=== PATIENT | female | born 1945 | race Caucasian/White ===

== ENCOUNTER 2018-09-11 15:40 | Outpatient (REF) | payer MEDICARE, OTHER, SELFPAY ==
[2018-09-11 23:11] LABS: Anion Gap 12.8 mmol/L (3-11); BUN 23 mg/dL (7-18); CO2 29.2 mmol/L (21.0-32.0); CREATININE 0.99 mg/dL (0.55-1.02); Calcium 9.8 mg/dL (8.5-10.1); Chloride 100 mmol/L (98-107); Estimated GFR 55.29 (mL/min/1.73m2); Glucose 88 mg/dL (70-100); Potassium 3.4 mmol/L (3.5-5.1); Sodium 142 mmol/L (136-145)
[2018-09-13 10:14] LABS: Hepatitis C Ab w Rflx HCV PCR Negative (NEGAT)
== END 2018-09-11 16:00 ==
LOC: NCHCN 15:40
PROVIDERS: PCP Internal Medicine; Visit Provider Internal Medicine
DX: G44.209 Tension-type headache, unspecified, not intractable (principal); I10 Essential (primary) hypertension; Z11.59 Encounter for screening for other viral diseases
CPT/HCPCS: 80048; 85652; 86803

== ENCOUNTER 2018-09-12 15:48 | Outpatient (REF) | payer MEDICARE, SELFPAY ==
[2018-09-12 23:06] LABS: ESR 22 MM/HR (0-30)
== END 2018-09-12 16:08 ==
LOC: NCHCN 15:48
PROVIDERS: PCP Internal Medicine; Visit Provider Internal Medicine
DX: G44.209 Tension-type headache, unspecified, not intractable (principal); I10 Essential (primary) hypertension
CPT/HCPCS: 85652

== ENCOUNTER → 2018-10-03 12:42 | Outpatient (BNVA) | payer MEDICARE, OTHER, SELFPAY | PROVIDERS: PCP Internal Medicine; Referring Provider Internal Medicine; Visit Provider Student in an Organized Health Care Education/Training Program | DX: M65.311 Trigger thumb, right thumb (principal); M65.342 Trigger finger, left ring finger; M65.352 Trigger finger, left little finger; I10 Essential (primary) hypertension | CPT/HCPCS: 99201; 99214 ==

== ENCOUNTER 2019-02-04 13:19 | Outpatient (CLI) | payer MEDICARE, OTHER, SELFPAY ==
--- NOTE | 2019-02-04 12:24 | DI.RAD_ITS ---
SYMPTOMS/DIAGNOSIS: COUGH, R05 PA AND LATERAL CHEST: The heart is not enlarged. There is an apparent small calcified granuloma in the right mid lung. Mild changes of COPD and scarring are noted. No pleural effusion seen. No focal consolidation seen. CONCLUSION: No evidence of acute disease.
== END 2019-02-04 13:39 ==
PROVIDERS: PCP Internal Medicine; Visit Provider Specialist/Technologist Athletic Trainer
DX: R05 Cough (principal); J44.9 Chronic obstructive pulmonary disease, unspecified
CPT/HCPCS: 71046

== ENCOUNTER 2019-02-10 08:25 | Emergency (ER) | payer MEDICARE, OTHER, SELFPAY ==
[2019-02-10 08:29] VITALS: BP 157/88; PULSE 60; RESP 20; TEMP 37.1; O2SAT 98
--- NOTE | 2019-02-10 08:38 | ED.GENADUL_ITS ---
Discharge Plan Disposition Patient Disposition: HOME Condition: Good Discharge Details Chief Complaint: Urinary Clinical Impression: Hematuria, Acute dehydration Primary Care Provider: Buddy Chopra ED Provider: Magnus Em Home Meds and New Rx's Prescriptions: No Action losartan 50 mg tablet 50 mg PO DAILY RF: 0 chlorthalidone 25 MG tablet 25 mg PO DAILY RF: 0 Ocuvite with Lutein 1 EACH tablet 1 ea PO DAILY RF: 0 potassium chloride 10 MEQ capsule, extended release 10 meq PO DAILY RF: 0 naproxen 500 MG tablet 500 mg PO PRN PRNRF: 0 calcium citrate-vitamin D3 1 EACH tablet 1 ea PO DAILY RF: 0 Discharge Instructions Instructions: Dehydration (ED), Hematuria (ED) Additional Instructions: Please drink 10 to 12 cups of water per day. Please follow-up closely with your primary care provider for reassessment of your urine to note resolving hematuria/blood in your urine. If you notice any worsening of your symptoms, or any new symptoms such as vomiting, diarrhea, fever, chills, shortness of breath, chest pain, numbness, weakness, or fainting , please return immediately to the emergency department for reevaluation. Please follow up with your primary care provider as soon as possible for reassessment and reevaluation. As always, it was a pleasure participating in your medical care today. Referrals: Buddy Chopra MD [Primary Care Provider] - Medical Decision Making This is a 73-year-old female who presents today for concern over brown coloring of her urine. Last night she did a significant amount of dancing with her partner, she did not drink much water. She denies any dysuria, hematuria, urinary frequency or fever or chills. She has no pelvic or flank pain whatsoever. She is otherwise asymptomatic aside for the brown urine. She denies any history of kidney stones or bladder pelvic pathology in the past. She does admit to a recent upper respiratory infection over the last 2 to 3 weeks, which is now resolved. She denies any other complaints. Differential at this time includes UTI, mild hematuria causing her discoloration, or post infectious glomerulonephritis. We will get basic labs, evaluate her urine and reassess. No clinical indication for strep throat infection at this time, and so I do not think any additional testing is indicated. 9:37 AM Laboratory work-up is returned, patient demonstrates normal renal function, there is evidence of mild dehydration with an elevated BUN. Potassium is slightly low at 3.2, however this appears to be chronic. We will recommend doubling up on her regular daily potassium supplements for the next 3 to 4 days. Urinalysis shows no evidence of urinary tract infection, however there is evidence of mild to moderate hematuria. However on observation of her urine it actually is clearing up significantly on external view. With no symptoms of flank pain, abdominal pain, dysuria, or pain whatsoever and with no evidence of casts in the urine, the diagnosis of urolithiasis is very low. I do not think any additional treatment is indicated at this time. She may also have mild asymptomatic hematuria secondary to her mild dehydration. Will recommend continued outpatient hydration, and close follow-up with her PCP for reevaluation of her urinalysis to make sure that the mild hematuria is resolving with hydration. Do not think any admission or emergent urologic consultation is indicated at this time. Signs and symptoms are clinically inconsistent with an aorto vesicular fistula. We discussed red flags for which to return the importance of prompt follow-up. I have extensively reviewed the treatment plan and discharge instructions with the patient and their family. I have addressed all patient concerns at this time. The patient and family was made aware of what symptoms to monitor for that would warrant a return to the emergency department. Discussed the plan with the patient and family, they demonstrate verbal understanding and agreement with our assessment and plan at this time. HPI General Date/Time Provider Initiated Documentation: 02/10/19 08:26 . HPI Narrative: This is a 73-year-old female with no significant past medical history except for anxiety, hypertension, and high cholesterol who presents today for evaluation of urinary complaint. The patient states that last night she did a lot of dancing and did not drink much water, this morning when she urinated she noticed that her PE was slightly brown in color. She denies any dysuria, urinary frequency, hematuria, flank abdominal or pelvic complaint, vaginal discharge or other complaints. She denies history of kidney stones, recent UTIs, or previous abdominal or pelvic surgeries. She has no other complaints at this time. The patient does admit to a recent URI in the last 2 to 3 weeks, which was mildly persistent for 1 to 2 weeks. This is notably resolved. She denies any significant sore throat or recent strep infection. She denies any foreign travel or history of renal disease. Related Data Home Medications Medication Instructions Recorded Confirmed Ocuvite with Lutein 1 ea PO DAILY 05/08/13 02/10/19 chlorthalidone 25 mg PO DAILY 05/08/13 02/10/19 potassium chloride 10 meq PO DAILY 10/09/17 02/10/19 calcium citrate-vitamin D3 1 ea PO DAILY 10/11/17 02/10/19 naproxen 500 mg PO PRN PRN 10/11/17 02/10/19 losartan 50 mg tablet 50 mg PO DAILY 10/03/18 02/10/19 Allergies Allergy/AdvReac Type Severity Reaction Status Date / Time No Known Allergies Allergy Unverified 02/10/19 08:31 General Stated Complaint: Urinary SHAZIA: 3 Review of Systems Review of Systems All systems reviewed & are unremarkable except as noted in HPI and below PFSH Family History Father Myocardial infarction Sister Atrial fibrillation Brother No problems noted. Brother No problems noted. Brother No problems noted. Social History Smoking/Tobacco Use Status: Never Alcohol Intake: current Alcohol Intake frequency: a few times a month Drug use: Never Do you feel safe at home: Yes Do you feel safe in your relationship?: Yes Exam Narrative Exam Narrative: 1.Const: Well-nourished, Well-developed, appearing stated age 2.Eyes: PERRL, no conjunctival injection, and symmetrical lids. 3.ENT: Atraumatic external nose and ears. Moist MM. Neck: Symmetric, trachea midline, No thyromegaly. No erythema the posterior oropharynx. No tonsillar exudates. No evidence of strep infection 4.CVS: +S1/S2, No murmurs or gallops. Peripheral pulses 2+ and equal in all extremities. Brisk capillary refill in all extremities. 5.RESP: Unlabored respiratory effort. Clear to auscultation bilaterally. No wheezes rales or rhonchi 6.GI: Soft, Nontender/Nondistended, No hepatosplenomegaly. No guarding or rebound. No flank or CVA tenderness. No tenderness on percussion of the pelvis or palpation of the pelvic area. 7.MSK: Normocephalic/Atraumatic, Extremities w/o deformity or ttp No cyanosis or clubbing, Normal movement of all extremities 8.Skin: Warm, Dry. No rashes or lesions. 9.Neuro: cashier general II-XII grossly intact. Sensation grossly intact, no focal neurologic deficits. 10.Psych: (AAO) x3. Appropriate mood and affect Course Vital Signs Temperature 37.1 C 02/10/19 08:29 Pulse 60 02/10/19 08:29 Respiratory Rate 20 02/10/19 08:29 Blood Pressure 157/88 H 02/10/19 08:29 Pulse Oximetry 98 02/10/19 08:29 Temperature 37.1 C 02/10/19 08:29 Temperature Source Temporal Artery Scan 02/10/19 08:29 Pulse 60 02/10/19 08:29 Respiratory Rate 20 02/10/19 08:29 Respiratory Effort Non-Labored 02/10/19 08:29 Blood Pressure 157/88 H 02/10/19 08:29 Blood Pressure Position Sitting 02/10/19 08:29 Pulse Oximetry 98 02/10/19 08:29 Oxygen Delivery Method Room Air 02/10/19 08:29 Oxygen Flow Rate 0 02/10/19 08:29 Pain Level 0 02/10/19 08:29
[2019-02-10 08:49] LABS: Abs Immature Grans 0.01 k/cumm (0.0-0.09); Absolute Basophil Count 0.02 k/cumm (0.0-0.2); Absolute Eosinophil Count 0.11 k/cumm (0.0-0.7); Absolute Lymphocyte Count 1.44 k/cumm (1.2-3.4); Absolute Monocyte Count 0.32 k/cumm (0.11-0.7); Absolute Neutrophil Count 2.82 k/cumm (1.2-6.7); Basophils % 0.4; Eosinophils % 2.3; HCT 39.8 % (36.0-46.0); HGB 13.4 g/dL (12.0-15.5); Immature Grans % 0.2; Lymphocytes % 30.5; Mean Corp. HGB Concentration 33.7 g/dL (32.0-36.0); Mean Corpuscular Hemoglobin 30.3 pg (27.0-33.0); Mean Platelet Volume 9.8 fL (8.0-11.0); Monocytes % 6.8; Neutrophils % 59.8; Platelet Count 259 x1000/uL (130-400); RBC 4.42 m/cumm (4.00-5.20); RBC Distribution Width 13.5 % (11.7-14.6); White Blood Cell Count 4.72 k/cumm (4.4-10.8)
[2019-02-10 08:53] LABS: Anion Gap 8.3 mmol/L (3-11); BUN 24 mg/dL (7-18); CO2 29.7 mmol/L (21.0-32.0); CREATININE 0.97 mg/dL (0.55-1.02); Calcium 8.9 mg/dL (8.5-10.1); Chloride 100 mmol/L (98-107); Estimated GFR 56.45 (mL/min/1.73m2); Glucose 100 mg/dL (70-100); Potassium 3.2 mmol/L (3.5-5.1); Sodium 138 mmol/L (136-145)
[2019-02-10 08:55] LABS: Bilirubin Negative (Negative); Blood Moderate (Negative); Clarity Sl Cloudy; Glucose Negative (Negative); Ketones Negative (Negative); Leukocyte Esterase Negative (Negative); Nitrite Negative (Negative); Specific Gravity 1.015 (1.005-1.025); Urobilinogen 0.2 EU/dL (Up TO 0.2); pH 7.5 (5-8)
[2019-02-10 09:03] LABS: Epithelial Cells Rare HPF (Negative); RBC >50 (0-2); WBC 0-2 HPF (0-5)
[2019-02-10 09:12] LABS: Bacteria Rare HPF (Negative); C & S Indicated? No; Casts Negative LPF (Negative); Crystals Negative HPF (Negative); Mucus Negative (Negative)
[2019-02-12 17:26] LABS: Streptococcus Pneumoniae Ag, U Negative (Negative)
== END 2019-02-10 09:44 | disposition home or self-care (01) ==
PROVIDERS: Emergency Provider Student in an Organized Health Care Education/Training Program; PCP Internal Medicine
DX: R31.9 Hematuria, unspecified (principal); E86.0 Dehydration; I10 Essential (primary) hypertension
CPT/HCPCS: 36415; 80048; 99283; 81003; 81015; 85025; 87450

== ENCOUNTER 2019-02-12 15:54 | Emergency (ER) | payer MEDICARE, OTHER, SELFPAY ==
[2019-02-12 15:59] VITALS: BP 137/89; PULSE 69; RESP 16; TEMP 36.9; O2SAT 97
[2019-02-12 16:13] LABS: Bilirubin Negative (Negative); Blood Large (Negative); Clarity Cloudy; Glucose Negative (Negative); Ketones Negative (Negative); Leukocyte Esterase Negative (Negative); Nitrite Negative (Negative); Specific Gravity 1.015 (1.005-1.025); Urobilinogen 0.2 EU/dL (Up TO 0.2)
--- NOTE | 2019-02-12 16:19 | DI.CT_ITS ---
SYMPTOMS/DIAGNOSIS: HEMATURIA ABDOMINAL AND PELVIC CT: CT examination of the abdomen and pelvis was performed without contrast administration. Images obtained through the lung bases are unremarkable. The visualized portions of the liver and spleen appear normal. The pancreas appears intact by noncontrast criteria. The gallbladder and biliary ducts are unremarkable. The abdominal aorta is of normal diameter. No significant abdominal wall hernia seen. No significant abdominal or pelvic adenopathy identified. The appendix appears normal. No evidence of bowel obstruction or diverticulitis. The adrenals are unremarkable in appearance bilaterally. There is a 7 cm in diameter low attenuation left renal mass consistent with cyst. This was present on previous examination of 03/21/16. There is question of increased prominence of the right collecting system in comparison with the previous examination. There may be parapelvic cysts. No urinary tract calcification identified. The possibility of UPJ obstruction on the right not entirely excluded. CONCLUSION: Questionable findings involving collecting system of right kidney, UPJ obstruction not excluded. CT urogram suggested for further evaluation.
[2019-02-12 16:25] LABS: RBC >50 (0-2)
[2019-02-12 16:26] LABS: C & S Indicated? Yes
[2019-02-12 17:03] LABS: ALT 31 U/L (12-78); AST 22 U/L (15-37); Albumin 3.6 g/dL (3.4-5.0); Alkaline Phosphatase 54 U/L (46-116); Anion Gap 10.5 mmol/L (3-11); BUN 22 mg/dL (7-18); Bilirubin, Total 0.4 mg/dL (0.2-1.0); CO2 25.5 mmol/L (21.0-32.0); CREATININE 0.85 mg/dL (0.55-1.02); Calcium 9.2 mg/dL (8.5-10.1); Chloride 101 mmol/L (98-107); Glucose 92 mg/dL (70-100); PTT Activated 22.6 sec (21.0-31.4); Potassium 3.4 mmol/L (3.5-5.1); Prothrombin Time 9.8 sec (9.3-11.0); Sodium 137 mmol/L (136-145); Total Protein 7.2 g/dL (6.4-8.2)
[2019-02-12 17:23] LABS: Abs Immature Grans 0.01 k/cumm (0.0-0.09); Absolute Basophil Count 0.01 k/cumm (0.0-0.2); Absolute Eosinophil Count 0.11 k/cumm (0.0-0.7); Absolute Lymphocyte Count 1.67 k/cumm (1.2-3.4); Absolute Monocyte Count 0.42 k/cumm (0.11-0.7); Absolute Neutrophil Count 3.49 k/cumm (1.2-6.7); Basophils % 0.2; Eosinophils % 1.9; HCT 38.3 % (36.0-46.0); HGB 12.9 g/dL (12.0-15.5); Immature Grans % 0.2; Lymphocytes % 29.2; Mean Corp. HGB Concentration 33.7 g/dL (32.0-36.0); Mean Corpuscular Hemoglobin 30.1 pg (27.0-33.0); Mean Corpuscular Volume 89.5 fL (80-95); Mean Platelet Volume 10.4 fL (8.0-11.0); Monocytes % 7.4; Neutrophils % 61.1; Platelet Count 256 x1000/uL (130-400); RBC 4.28 m/cumm (4.00-5.20); RBC Distribution Width 13.2 % (11.7-14.6); White Blood Cell Count 5.71 k/cumm (4.4-10.8)
[2019-02-12 18:06] VITALS: BP 155/70; PULSE 57; TEMP 37; O2SAT 97
--- NOTE | 2019-02-12 18:31 | DI.VRAD_ITS ---
EXAM: CT Abdomen and Pelvis Without Contrast EXAM DATE/TIME: 02/12/2019 4:20 PM CLINICAL HISTORY: 73 years old, female; Signs and symptoms; Other: Hematuria TECHNIQUE: Imaging protocol: Axial computed tomography images of the abdomen and pelvis without contrast. Coronal and sagittal reformatted images were created and reviewed. Radiation optimization: All CT scans at this facility use at least one of these dose optimization techniques: automated exposure control; mA and/or kV adjustment per patient size (includes targeted exams where dose is matched to clinical indication); or iterative reconstruction. COMPARISON: CT ABD PELVIS WITH CONTRAST 03/21/2016 9:39 AM FINDINGS: Lungs: There is mild bibasilar linear fibrosis/atelectasis. ABDOMEN: Liver: The first section of the abdomen CT begins low in the dome of the liver and upper spleen so the liver and spleen are incompletely imaged. The liver and spleen are otherwise unremarkable. Gallbladder and bile ducts: Normal. No calcified stones. No ductal dilation. Pancreas: Normal. No ductal dilation. Spleen: No splenomegaly. Adrenals: Normal. No mass. Kidneys and ureters: Large 6.7 cm left renal cyst. Kidneys are otherwise unremarkable. Stomach and bowel: Normal. No obstruction. No mucosal thickening. Appendix: No evidence of appendicitis. PELVIS: Bladder: Unremarkable as visualized. Reproductive: Unremarkable as visualized. ABDOMEN and PELVIS: Intraperitoneal space: No free air. No significant fluid collection. Small fat-containing umbilical hernia. Bones/joints: Degenerative changes of the lumbar spine without acute osseous abnormality. Soft tissues: Unremarkable. Vasculature: Atherosclerotic calcifications of the aorta and iliac arteries without evidence of aneurysm. Lymph nodes: Normal. No enlarged lymph nodes. IMPRESSION: No acute intra-abdominal process is identified. Dictated and Authenticated by: Estiven Diane MD. Ordering:FLAVIO Agudelo MD
--- NOTE | 2019-02-12 19:14 | ED.GENADUL_ITS ---
Discharge Plan Disposition Patient Disposition: HOME Condition: Good Discharge Details Chief Complaint: Urinary Clinical Impression: Hematuria Primary Care Provider: Buddy Chopra ED Provider: Magnus Em Home Meds and New Rx's Prescriptions: New cephalexin [Keflex] 500 mg capsule 500 mg PO QID 7 Days Qty: 28 RF: 0 No Action losartan 50 mg tablet 50 mg PO DAILY RF: 0 chlorthalidone 25 MG tablet 25 mg PO DAILY RF: 0 Ocuvite with Lutein 1 EACH tablet 1 ea PO DAILY RF: 0 potassium chloride 10 MEQ capsule, extended release 10 meq PO DAILY RF: 0 naproxen 500 MG tablet 500 mg PO PRN PRNRF: 0 calcium citrate-vitamin D3 1 EACH tablet 1 ea PO DAILY RF: 0 Discharge Instructions Instructions: Hematuria (ED) Additional Instructions: Please take the antibiotic as directed. You will be contacted for your follow- up appointment with Dr. Delgadillo. If you notice any worsening of your symptoms, or any new symptoms such as vomiting, diarrhea, fever, chills, shortness of breath, chest pain, numbness, weakness, or fainting , please return immediately to the emergency department for reevaluation. Please follow up with your primary care provider as soon as possible for reassessment and reevaluation. As always, it was a pleasure participating in your medical care today. Referrals: Preston Delgadillo MD [ [facility] STAFF PHYSICIAN] - Discharge Data Discharge Date/Time-TO BE ENTERED AT DEPARTURE: 02/12/19 19:40 Medical Decision Making This is a pleasant 73-year-old female with no significant past medical history except for mild high cholesterol mild hypertension presents today for evaluation of hematuria. He was seen and assessed here 4 days ago, at that time she had a urinalysis which showed mild hematuria, no evidence of infection, and she had no complaints of abdominal pain, flank pain, dysuria or increased urina ry frequency. Her and her stay last time urine resolved on its own in the ED, and she is feeling much better and was discharged home with instructions to return for return of her symptoms. Her hematuria has returned today after being 2 days of hematuria free. She continues to deny any flank or abdominal pain. She has no nausea vomiting fever or chills. Exam demonstrates a continued nontender. Abdomen. As of the return of her symptoms I do feel that further work-up is indicated. Laboratory work-up was drawn, the patient demonstrates no evidence of clinical anemia, white count is normal, hemoglobin and platelets are normal. Electrolytes are within normal limits, potassium has notably improved. Before. Renal function is stable, liver function normal. CT scan was ordered, there appears to be no evidence per virtual radiologist of kidney stone, or significant abnormality in the abdomen or pelvis. No evidence of bladder thickening, or other abnormality. No evidence of significant renal growth or tumor. There is evidence of a renal cyst but no other significant abnormalities. With a stable hemoglobin, reassuring vital signs, no evidence of clinical pyelonephritis, do not feel that admission or emergent urology consult is needed at this time. Symptoms appear inconsistent with a abdominal aortic aneurysm. Virtual radiology makes no additional comments. Out of an abundance of precaution we will start the patient on Keflex as there may be a component of cystitis secondary to very mild bacterial infection that could be causing her symptoms. We will schedule urology follow-up. Discussed red flags which to return the patient and family understand. I have extensively reviewed the treatment plan and discharge instructions with the patient and their family. I have addressed all patient concerns at this time. The patient and family was made aware of what symptoms to monitor for that would warrant a return to the emergency department. Discussed the plan with the patient and family, they demonstrate verbal understanding and agreement with our assessment and plan at this time. Exam: CT Abdomen and Pelvis Without Contrast EXAM DATE/TIME: 02/12/2019 4:20 PM CLINICAL HISTORY: 73 years old, female; Signs and symptoms; Other: Hematuria Technique: Imaging protocol: Axial computed tomography images of the abdomen and pelvis without contrast. Coronal and sagittal reformatted images were created and reviewed. Radiation optimization: All CT scans at this facility use at least one of these dose optimization techniques: automated exposure control; mA and/or kV adjustment per patient size (includes targeted exams where dose is matched to clinical indication); or iterative reconstruction. Comparison: CT ABD PELVIS WITH CONTRAST 03/21/2016 9:39 AM Findings: Lungs: There is mild bibasilar linear fibrosis/atelectasis. ABDOMEN: Liver: The first section of the abdomen CT begins low in the dome of the liver and upper spleen so the liver and spleen are incompletely imaged. The liver and spleen are otherwise unremarkable. Gallbladder and bile ducts: Normal. No calcified stones. No ductal dilation. Pancreas: Normal. No ductal dilation. Spleen: No splenomegaly. Adrenals: Normal. No mass. Kidneys and ureters: Large 6.7 cm left renal cyst. Kidneys are otherwise unremarkable. Stomach and bowel: Normal. No obstruction. No mucosal thickening. Appendix: No evidence of appendicitis. PELVIS: Bladder: Unremarkable as visualized. Reproductive: Unremarkable as visualized. ABDOMEN and PELVIS: Intraperitoneal space: No free air. No significant fluid collection. Small fat-containing umbilical hernia. Bones/joints: Degenerative changes of the lumbar spine without acute osseous abnormality. Soft tissues: Unremarkable. Vasculature: Atherosclerotic calcifications of the aorta and iliac arteries without evidence of aneurysm. Lymph nodes: Normal. No enlarged lymph nodes. Impression: No acute intra-abdominal process is identified. Dictated and Authenticated by: Estiven Diane MD. Ordering:FLAVIO Agudelo MD [facility] General Date/Time Provider Initiated Documentation: 02/12/19 15:56 . HPI Narrative: This is a very pleasant 73-year-old female with a past medical history of cholesterol, pretension, presents today for blood in her urine. He was seen and assessed 4 days ago, at that time her urine was slightly darker than normal, he has no other symptoms whatsoever. That time urinalysis shows mild hematuria with no evidence of infection. No pain, nausea, vomiting or other symptoms and her symptoms actually improving in the ED she was discharged home with close follow-up with her PCP. Is instructed to return if she had any return of her hematuria. Patient states that over the last 2 days she has been drinking plenty of water and her urine had completely resolved in regards to the hematuria over this morning hematuria returned and it was slightly more than before. She continues to deny any pain, abdominal pain, flank pain, dysuria, trace urinary frequency. She denies any fever, chills, chest pain, shortness of breath, vomiting or diarrhea. She denies any history of kidney stones, blood thinner use, or trauma. She has no other complaints modifying factors otherwise. Additionally she denies any vaginal discharge. Related Data Home Medications Medication Instructions Recorded Confirmed Ocuvite with Lutein 1 ea PO DAILY 05/08/13 02/12/19 chlorthalidone 25 mg PO DAILY 05/08/13 02/12/19 potassium chloride 10 meq PO DAILY 10/09/17 02/12/19 calcium citrate-vitamin D3 1 ea PO DAILY 10/11/17 02/12/19 naproxen 500 mg PO PRN PRN 10/11/17 02/12/19 losartan 50 mg tablet 50 mg PO DAILY 10/03/18 02/12/19 cephalexin [Keflex] 500 mg PO QID 7 Days #28 cap 02/12/19 Previous Rx's Medication Instructions Recorded cephalexin [Keflex] 500 mg PO QID 7 Days #28 cap 02/12/19 Allergies Allergy/AdvReac Type Severity Reaction Status Date / Time No Known Allergies Allergy Unverified 02/12/19 16:01 General Stated Complaint: Urinary SHAZIA: 3 Review of Systems Review of Systems All systems reviewed & are unremarkable except as noted in HPI and below PFSH Family History Father Myocardial infarction Sister Atrial fibrillation Brother No problems noted. Brother No problems noted. Brother No problems noted. Social History Smoking/Tobacco Use Status: Never Alcohol Intake: current Alcohol Intake frequency: a few times a month Drug use: Never Do you feel safe at home: Yes Do you feel safe in your relationship?: Yes Exam Narrative Exam Narrative: 1.Const: Well-nourished, Well-developed, appearing stated age 2.Eyes: PERRL, no conjunctival injection, and symmetrical lids. 3.ENT: Atraumatic external nose and ears. Moist MM. Neck: Symmetric, trachea midline, No thyromegaly. 4.CVS: +S1/S2, No murmurs or gallops. Peripheral pulses 2+ and equal in all extremities. Brisk capillary refill in all extremities. 5.RESP: Unlabored respiratory effort. Clear to auscultation bilaterally. No wheezes rales or rhonchi 6.GI: Soft, Nontender/Nondistended, No hepatosplenomegaly. No guarding or rebound. No flank or CVA tenderness. No guarding or rebound on CVA percussion. 7.MSK: Normocephalic/Atraumatic, Extremities w/o deformity or ttp No cyanosis or clubbing, Normal movement of all extremities 8.Skin: Warm, Dry. No rashes or lesions. 9.Neuro: patient access manager II-XII grossly intact. Sensation grossly intact, no focal neurologic deficits. 10.Psych: (AAO) x3. Appropriate mood and affect Course Vital Signs Temperature 36.9 C 02/12/19 15:59 Pulse 69 02/12/19 15:59 Respiratory Rate 16 05/14/19 15:59 Blood Pressure 137/89 02/12/19 15:59 Pulse Oximetry 97 02/12/19 15:59 Temperature 37.0 C 02/12/19 18:06 Temperature Source Skin 02/12/19 18:06 Pulse 57 L 02/12/19 18:06 Respiratory Rate 16 02/12/19 15:59 Respiratory Effort Non-Labored 02/12/19 16:02 Blood Pressure 155/70 H 02/12/19 18:06 Blood Pressure Position Sitting 02/12/19 15:59 Pulse Oximetry 97 02/12/19 18:06 Oxygen Delivery Method Room Air 02/12/19 15:59 Oxygen Flow Rate 0 02/12/19 15:59 Pain Level 0 02/12/19 18:06 Lab/Test Results Lab/Test Results: 02/12/19 16:05 Urine - Reflex from Ua Urine Culture - Pending Laboratory Tests Range/Units 02/12/19 02/12/19 02/12/19 16:05 16:38 16:38 WBC (4.4-10.8) k/cumm 5.71 RBC (4.00-5.20) m/cumm 4.28 Hgb (12.0-15.5) g/dL 12.9 Hct (36.0-46.0) % 38.3 MCV (80-95) fL 89.5 MCH (27.0-33.0) pg 30.1 MCHC (32.0-36.0) g/dL 33.7 RDW (11.7-14.6) % 13.2 Plt Count (130-400) x1000/uL 256 MPV (8.0-11.0) fL 10.4 Immature Gran % 0.2 Neutrophils % 61.1 Lymphocytes % 29.2 Monocytes % 7.4 Eosinophils % 1.9 Basophils % 0.2 Absolute Neutrophils (1.2-6.7) k/cumm 3.49 Absolute Lymphocytes (1.2-3.4) k/cumm 1.67 Absolute Monocytes (0.11-0.7) k/cumm 0.42 Absolute Eosinophils (0.0-0.7) k/cumm 0.11 Absolute Basophils (0.0-0.2) k/cumm 0.01 PT (9.3-11.0) sec INR (0.9-1.1) APTT (21.0-31.4) sec Sodium (136-145) mmol/L 137 Potassium (3.5-5.1) mmol/L 3.4 L Chloride (98-107) mmol/L 101 Carbon Dioxide (21.0-32.0) mmol/L 25.5 Anion Gap (3-11) mmol/L 10.5 BUN (7-18) mg/dL 22 H Creatinine (0.55-1.02) mg/dL 0.85 Estimated GFR/1.73 m2 (mL/min/1.73m2) >= 60.00 Glucose (70-100) mg/dL 92 Calcium (8.5-10.1) mg/dL 9.2 Total Bilirubin (0.2-1.0) mg/dL 0.4 AST (15-37) U/L 22 ALT (12-78) U/L 31 Alkaline Phosphatase (46-116) U/L 54 Total Protein (6.4-8.2) g/dL 7.2 Albumin (3.4-5.0) g/dL 3.6 Urine Color (Yellow) [place] Urine Clarity Cloudy Urine pH (5-8) 7.0 Ur Specific [place] (1.005-1.025) 1.015 Urine Protein (Negative) mg/dL >=300 H Urine Ketones (Negative) mg/dL Negative Urine Blood (Negative) Large H Urine Nitrite (Negative) Negative Urine Bilirubin (Negative) Negative Urine Urobilinogen (Up TO 0.2) EU/dL 0.2 Ur Leukocyte Esterase (Negative) Negative Urine RBC (0-2) >50 H Urine WBC Not Applicable Ur Epithelial Cells Not Applicable Urine Crystals Not Applicable Urine Bacteria Not Applicable Urine Mucus Not Applicable Ur Culture Indicated? Yes Urine Glucose (Negative) mg/dL Negative Range/Units 02/12/19 16:38 WBC (4.4-10.8) k/cumm RBC (4.00-5.20) m/cumm Hgb (12.0-15.5) g/dL Hct (36.0-46.0) % MCV (80-95) fL MCH (27.0-33.0) pg MCHC (32.0-36.0) g/dL RDW (11.7-14.6) % Plt Count (130-400) x1000/uL MPV (8.0-11.0) fL Immature Gran % Neutrophils % Lymphocytes % Monocytes % Eosinophils % Basophils % Absolute Neutrophils (1.2-6.7) k/cumm Absolute Lymphocytes (1.2-3.4) k/cumm Absolute Monocytes (0.11-0.7) k/cumm Absolute Eosinophils (0.0-0.7) k/cumm Absolute Basophils (0.0-0.2) k/cumm PT (9.3-11.0) sec 9.8 INR (0.9-1.1) 1.0 APTT (21.0-31.4) sec 22.6 Sodium (136-145) mmol/L Potassium (3.5-5.1) mmol/L Chloride (98-107) mmol/L Carbon Dioxide (21.0-32.0) mmol/L Anion Gap (3-11) mmol/L BUN (7-18) mg/dL Creatinine (0.55-1.02) mg/dL Estimated GFR/1.73 m2 (mL/min/1.73m2) Glucose (70-100) mg/dL Calcium (8.5-10.1) mg/dL Total Bilirubin (0.2-1.0) mg/dL AST (15-37) U/L ALT (12-78) U/L Alkaline Phosphatase (46-116) U/L Total Protein (6.4-8.2) g/dL Albumin (3.4-5.0) g/dL Urine Color (Yellow) Urine Clarity Urine pH (5-8) Ur Specific [place] (1.005-1.025) Urine Protein (Negative) mg/dL Urine Ketones (Negative) mg/dL Urine Blood (Negative) Urine Nitrite (Negative) Urine Bilirubin (Negative) Urine Urobilinogen (Up TO 0.2) EU/dL Ur Leukocyte Esterase (Negative) Urine RBC (0-2) Urine WBC Ur Epithelial Cells Urine Crystals Urine Bacteria Urine Mucus Ur Culture Indicated? Urine Glucose (Negative) mg/dL
[2019-02-12] MEDS: Cephalexin 500 MG CAP PO (19:22)
[2019-02-12 19:30] VITALS: BP 148/82; PULSE 61; RESP 18; TEMP 36.3; O2SAT 97
--- NOTE | 2019-02-13 08:10 | PDOC.ERCMPRO ---
Care Management Progress Note 02/13-Dr. Em requested assistance with a urology f/u in 1-2 weeks for hematuria. Referral faxed to urology this am.
== END 2019-02-12 19:40 | disposition home or self-care (01) ==
PROVIDERS: Emergency Provider Student in an Organized Health Care Education/Training Program; PCP Internal Medicine
DX: R31.9 Hematuria, unspecified (principal); I10 Essential (primary) hypertension
CPT/HCPCS: 36415; 80053; 99284; 74176; 81003; 81015; 85025; 85610; 85730; 87086

== ENCOUNTER → 2019-02-20 10:50 | Outpatient (BNVA) | payer MEDICARE, OTHER, SELFPAY | PROVIDERS: PCP Internal Medicine; Visit Provider Nurse Practitioner Gerontology | DX: R31.9 Hematuria, unspecified (principal); I10 Essential (primary) hypertension | CPT/HCPCS: 81003; 99204; 99215 ==

== ENCOUNTER 2019-02-26 01:04 | Outpatient (CLI) | payer MEDICARE, OTHER, SELFPAY ==
--- NOTE | 2019-02-26 10:21 | DI.CT_ITS ---
SYMPTOMS/DIAGNOSIS: HEMATURIA, AREA OF CONCERN BY RADIOLOGIST, R31.9 CT SCAN OF THE ABDOMEN AND PELVIS: Pre and post contrast CT scan of the abdomen and pelvis was performed. Comparison CT scan is 02/12/19. Noncontrast examination was performed. There is again seen a cyst in the upper pole of the left kidney, which appears stable. No nephrolithiasis or ureterolithiasis is seen. The urinary bladder is intact. Note is made of a 1.8 cm diverticulum arising from the right aspect of the urinary bladder. Contrast was then administered and venous imaging and [id number] imaging of the abdomen and pelvis were performed. No acute findings are seen in the lung bases. There is no evidence of a hepatic mass. The portals, superior mesenteric and splenic veins are patent. The gallbladder is negative. There is no biliary ductal dilatation. The pancreas, spleen and adrenal glands are grossly unremarkable. The cysts seen in the left kidney appear stable in size. There does appear to be mild thickening in the wall of the left kidney, which has developed when compared to the prior examination. The left kidney is otherwise unremarkable. In the right kidney, there are two tiny hypodense lesions, likely reflecting cysts but are too small for further characterization. The reproductive organs are unremarkable. The bowel shows no evidence of obstruction or inflammation. No significant abdominal or pelvic adenopathy, ascites or pneumoperitoneum is present. The abdominal aorta is of normal caliber. Moderately severe degenerative changes are present throughout the lumbar spine, particularly at the L5-S1 disc space. [id number] images of the collecting system were obtained. The right renal collecting system shows no evidence of obstruction. The left renal collecting system shows no evidence of obstruction. The urinary bladder is intact. No intraluminal masses are present. IMPRESSION: 1. No evidence of a right renal mass or obstruction. 2. Left renal cyst. Increased thickening of the wall of the cyst compared to the prior examination. This change in appearance of the cyst may warrant additional followup. This may include an MRI.
[2019-02-26] MEDS: Omnipaque 350 MG/ML 100 ML BTL IJ (10:23)
== END 2019-02-26 01:24 ==
PROVIDERS: PCP Internal Medicine; Visit Provider Nurse Practitioner Gerontology
DX: R31.9 Hematuria, unspecified (principal); N28.1 Cyst of kidney, acquired; N28.89 Other specified disorders of kidney and ureter
CPT/HCPCS: 74178; J3490

== ENCOUNTER → 2019-02-27 11:27 | Outpatient (BNVA) | payer MEDICARE, OTHER, SELFPAY | PROVIDERS: PCP Internal Medicine; Visit Provider Nurse Practitioner Gerontology | DX: R31.9 Hematuria, unspecified (principal) | CPT/HCPCS: 81003; 99213 ==

== ENCOUNTER 2019-03-25 10:24 | Day surgery (SDC) | payer MEDICARE, OTHER, SELFPAY ==
[2019-03-25 10:47] VITALS: BP 144/76; PULSE 60; RESP 19; TEMP 36.8; O2SAT 95
[2019-03-25] MEDS: Lactated Ringers 1,000 ML 80 ML IV (11:07)
[2019-03-25] MEDS: Sulfameth/Trimeth DS TAB 1 TAB PO (11:12)
[2019-03-25] MEDS: Lidocaine 2% Jelly 6 ML SYR (13:25)
--- NOTE | 2019-03-25 13:33 | W.PM.DSUDISC ---
Discharge Plan Disposition Patient Disposition: HOME Condition: Stable Discharge Details Attending Provider: Preston Delgadillo Primary Care Provider: Buddy Chopra Home Meds and New Rx's Prescriptions: No Action losartan 50 mg tablet 50 mg PO DAILY RF: 0 Ocuvite with Lutein 1 EACH tablet 1 ea PO DAILY RF: 0 naproxen 500 MG tablet 500 mg PO PRN PRNRF: 0 calcium citrate-vitamin D3 1 EACH tablet 1 ea PO DAILY RF: 0 diltiazem HCl 120 mg Tablet 120 mg PO DAILY RF: 0 aspirin 325 mg Tablet 650 mg PO RF: 0 Discharge Instructions Additional Instructions: F/U 1 year for urinalysis Stand Alone Forms: [facility] Keenan Chen ([facility]) Activity:: Activity as Tolerated Shower/Bathe:: 24 hours Diet:: As Tolerated Discharge Orders Discharge Orders: Discharge Order (Routine); Ordered 03/25/19 Ordered By: Preston Delgadillo DS: Diagnosis Discharge Diagnosis (1) Hematuria: Status: Acute
[2019-03-25 14:07] VITALS: BP 164/82; PULSE 51; RESP 16; TEMP 35.7; O2SAT 99
[2019-03-25] MEDS: Phenazopyridine 200 MG TAB PO (14:36)
--- NOTE | 2019-03-25 14:48 | ROE_ITS ---
DATE OF PROCEDURE: March 25, 2019 PREOPERATIVE DIAGNOSIS: Microscopic hematuria. POSTOPERATIVE DIAGNOSIS: Same. PROCEDURE: Cystoscopy. SURGEON: Preston Delgadillo M.D. ANESTHESIA: MAC with local. COMPLICATIONS: None. HISTORY: This is a 73-year-old woman who was identified as having microscopic hematuria. Her evalua tion so far has included a CT urogram, which showed no suspicious areas in the kidneys. She presents now for a cystoscopy to complete her hematuria workup. OPERATIVE REPORT: The patient was brought to the Operating Room on 03/25/19. She was given monitored anesthesia care and placed in the dorsal lithotomy position. Her genitalia was prepped and draped. 2% Xylocaine jelly was instilled into the urethra. A 22 [place] rigid cystoscope was passed through the urethra into the bladder. The bladder was inspec jt using both the 30 and the 70-degree lens. The base of the bladder had descended slightly. Both ureteral orifices were normal in appearance. N o blood was seen coming from either side. A small bladder diverticulum was seen on the right posteri or wall. No tumor was seen within the diverticulum. No papillary or nodular lesions were seen throu ghout the remainder of the bladder. After our findings were confirmed with both the 30 and the 70-degree lens, the bladder was emptied an d the cystoscope was withdrawn. The patient tolerated this procedure well with no complications. With no significant uropathology id entified, our current recommendation is a yearly urinalysis and a repeat workup in 3 to 5 years if th e hematuria persists. cc: Buddy Chopra M.D.
== END 2019-03-25 14:38 | disposition home or self-care (01) ==
PROVIDERS: PCP Internal Medicine; Visit Provider Urology
PROC: 0TJB8ZZ Inspection of Bladder, Via Natural or Artificial Opening Endoscopic (ICD-10-PCS; CPT 52000; principal; 2019-03-25 11:30)
DX: R31.29 Other microscopic hematuria (principal)
CPT/HCPCS: 52000; J1885; J2405

== ENCOUNTER 2019-04-11 12:20 | Outpatient (REF) | payer MEDICARE, OTHER, SELFPAY | END 2019-04-11 12:40 | LOC: NCHCN 12:20 | PROVIDERS: PCP Internal Medicine; Visit Provider Internal Medicine | DX: N39.0 Urinary tract infection, site not specified (principal) | CPT/HCPCS: 87086 ==

== ENCOUNTER 2019-11-30 20:23 | Emergency (ER) | payer MEDICARE, OTHER, SELFPAY ==
[2019-11-30 20:26] VITALS: BP 164/82; PULSE 66; RESP 18; TEMP 36.8; O2SAT 98
--- NOTE | 2019-11-30 20:30 | DI.RAD_ITS ---
EXAM: XR KNEE LT 3V AP,LAT,GUSTAVO INDICATION: posterior knee pain, nontraumatic. COMPARISON: No exams were available for comparison TECHNIQUE: 2D digital imaging was performed. FINDINGS: No fracture or joint effusion is seen. Degenerative changes are noted at the patellofemoral joint. There is mild spurring at the tibial spines. IMPRESSION: Mild degenerative changes. No acute abnormality. DATA REPOSITORY: RADIATION DOSE DELIVERED:
--- NOTE | 2019-11-30 20:46 | W.ED.GENAD ---
Discharge Plan Disposition Patient Disposition: HOME Condition: Good Discharge Details Chief Complaint: Vascular Clinical Impression: Acute pain of left knee Primary Care Provider: Buddy Chopra ED Provider: Magnus Em Home Meds and New Rx's Prescriptions: No Action losartan 50 mg tablet 50 mg PO DAILY RF: 0 Ocuvite with Lutein 1 EACH tablet 1 ea PO DAILY RF: 0 naproxen 500 MG tablet 500 mg PO PRN PRNRF: 0 calcium citrate-vitamin D3 1 EACH tablet 1 ea PO DAILY RF: 0 diltiazem HCl 120 mg Tablet 120 mg PO DAILY RF: 0 aspirin 325 mg Tablet 650 mg PO RF: 0 Discharge Instructions Instructions: Knee Pain (ED) Additional Instructions: At this time your x-ray shows no evidence of fracture or significant abnormality. I suspect your pain is likely from a mild sprain of the muscles. However although I did not see anything significant on my ultrasound we still need a definitive study to rule out a blood clot. Please return on Monday morning for your ultrasound of the lower extremity. You will be contacted for an appointment time. At this time you have elected to hold off on blood thinners. Please take Tylenol and 2 baby aspirin as needed for pain, continue to use ice or heat on your painful area to help. Use your cane at home to help while you walk. Keep the area elevated, wrap it with an Bridger wrap when tolerable at home. If you notice any worsening of your symptoms, or any new symptoms such as vomiting, diarrhea, fever, chills, shortness of breath, chest pain, numbness, weakness, or fainting , please return immediately to the emergency department for reevaluation. Please follow up with your primary care provider as soon as possible for reassessment and reevaluation. As always, it was a pleasure participating in your medical care today. Referrals: Buddy Chopra MD [Primary Care Provider] - Medical Decision Making This is a very pleasant 74-year-old female with past medical history of hypertension high cholesterol who presents today for evaluation of posterior knee and calf pain. Is been present for the last 12 to 18 hours. Is only present with deep palpation or placing some weight on it. She is able to walk without significant limp. She denies any injury. No red flags for DVT or PE. Physical exam is notably unremarkable, and shows no evidence of swelling edema decreased vascular or neurologic tone. No redness warmth or discharge. Symptoms inconsistent with large Jones's cyst. Bedside limited portable ultrasound shows no DVT from the proximal femoral vein all the way to the mid to distal calf. Exam is certainly limited. Differential at this time is highest for musculoskeletal strain, less likely osseous injury. Less likely DVT. We will get x-rays to rule out acute orthopedic injury. We will place Lidoderm patch and give Tylenol. 9:41 PM X-ray has returned negative for any acute fracture, there is prominence of the posterior soft tissue. On ultrasound I do not she see any evidence of a large Jones's cyst, however there may have been a small lymph nodes present. Patient notes mild improvement with Lidoderm patch. At this time I do feel that her symptoms are most likely from mild strain, however differential still does include DVT but less likely. I did discuss risks and benefits of anticoagulation therapy, and at this time with a thorough and in-depth discussion about the risks and benefits, and through shared decision making process, family and patient would like to hold off on anticoagulation at this time. Especially with her history of hematuria. I did recommend that she continues to take 1-2 baby aspirin daily. Recommend Tylenol continued for pain, as well as ice and heat as needed. She has a cane at home and does not want any additional assist device here. We will schedule outpatient ultrasound for Monday. I have extensively reviewed the treatment plan and discharge instructions with the patient and their family. I have addressed all patient concerns at this time. The patient and family was made aware of what symptoms to monitor for that would warrant a return to the emergency department. Discussed the plan with the patient and family, they demonstrate verbal understanding and agreement with our assessment and plan at this time. FINDINGS: Bones/joints: No acute fracture identified. There are degenerative changes in the patellofemoral joint. A probable spur is seen arising from the proximal tibia on the lateral image. Soft tissues: There is prominence to the posterior soft tissues. IMPRESSION: 1. No acute fracture identified. Degenerative changes are noted. 2. There is prominence to the posterior soft tissues. This could be secondary to patient body habitus but should be correlated with any concern for edema, infection, or other soft tissue abnormalities. If indicated, an ultrasound or MRI could be considered for further evaluation. Other findings/details as above. Thank you for allowing us to participate in the care of your patient. Dictated and Authenticated by: Jody Espinoza MD 11/30/2019 9:19 PM Eastern Time ([place] & [place]) HPI General Date/Time Provider Initiated Documentation: 11/30/19 20:26. HPI Narrative: This is a pleasant 74-year-old female with a past medical history of hypertension, high cholesterol, previous sciatica, who presents today for evaluation of left leg pain that started in the last 12 to 18 hours. She denies any recent trauma, sprain, strain, or injury. Pain is aching in nature, is in the posterior aspect of her knee, and travels slightly down towards her ankle. It is in the posterior aspect of the leg. She denies any associated numbness tingling or weakness. She denies any proximal pain. She denies any symptoms of associated fever, shortness of breath, chest pain or pleuritic chest pain. Denies dvt risk factors such as recent long car rides, immobilization, recent surgery, prior history of DVT or PE, family history of PE or DVT, morbid obesity, exogenous estrogen and smoking, hemoptysis, history of cancer. She has no other complaints at this time. She has taken no NSAIDs ice or heat for treatment of the pain. Related Data Home Medications Medication Instructions Recorded Confirmed Ocuvite with Lutein 1 ea PO DAILY 05/08/13 03/25/19 calcium citrate-vitamin D3 1 ea PO DAILY 10/11/17 03/25/19 naproxen 500 mg PO PRN PRN 10/11/17 03/25/19 losartan 50 mg tablet 50 mg PO DAILY 10/03/18 03/25/19 diltiazem HCl 120 mg PO DAILY 03/21/19 03/25/19 aspirin 650 mg PO 03/25/19 Allergies Allergy/AdvReac Type Severity Reaction Status Date / Time No Known Allergies Allergy Unverified 11/30/19 20:30 General Stated Complaint: Vascular SHAZIA: 3 Review of Systems All systems reviewed & are unremarkable except as noted in HPI and below [facility] Medical History (Updated 11/30/19 @ 21:11 by Magnus Em DO) Anxiety Essential hypertension Hypercholesterolemia Sciatica RLE&LLE Surgical History Colonoscopy - IV Sedation (~2002) Incomplete Colonoscopy - MAC (~2002) Hx of dilation and curettage (Acute) 1976, 2008 Social History Smoking/Tobacco Use Status: Never Alcohol Intake: current Alcohol Intake frequency: holidays/special occasions only Alcohol type: wine Drug use: Never Substance use type: does not use Do you feel safe at home: Yes Do you feel safe in your relationship?: Yes Additional Social history: , Adal Exam Narrative Exam Narrative: 1.Const: Well-nourished, Well-developed, appearing stated age 2.Eyes: PERRL, no conjunctival injection, and symmetrical lids. 3.ENT: Atraumatic external nose and ears. Moist MM. Neck: Symmetric, trachea midline, No thyromegaly. 4.CVS: +S1/S2, No murmurs or gallops. Peripheral pulses 2+ and equal in all extremities. Brisk capillary refill in all extremities. 5.RESP: Unlabored respiratory effort. Clear to auscultation bilaterally. No wheezes rales or rhonchi 6.GI: Soft, Nontender/Nondistended, No hepatosplenomegaly. No guarding or rebound. 7.MSK: Normocephalic/Atraumatic, Extremities w/o deformity or any significant Ttp No cyanosis or clubbing, Normal movement of all extremities. Left knee: The knee is stable to varus, valgus, and anterior drawer stress. No deformity. Patellar grind test is negative. Dana test is negative for pain. Patient is able to walk without difficulty. No edema or warmth to the joint. No ttp to the patella, tibial plateau, or fibular head. Minimal tenderness on deep palpation of the left posterior popliteal space, and slightly distally about 2 to 3 inches down the calf. Negative Homans sign. No pitting edema. Neurovascular exam normal distal to the knee. No other abnormalities. Limited bedside ultrasound of the left lower extremity demonstrates no evidence of DVT from the proximal femoral vein all the way to the distal calf. Good compressibility all the way down, no evidence of vascular flow compromise, Doppler shows good blood flow throughout on limited bedside ultrasound exam. No large Jones's cyst. 8.Skin: Warm, Dry. No rashes or lesions. 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 Sensation grossly intact, no focal neurologic deficits. 10.Psych: (AAO) x3. Appropriate mood and affect Course Vital Signs Vital signs: Vital Signs Temperature 36.8 C 11/30/19 20:26 Pulse 66 11/30/19 20:26 Respiratory Rate 18 11/30/19 20:26 Blood Pressure 164/82 H 11/30/19 20:26 Pulse Oximetry 98 11/30/19 20:26 Temperature 36.8 C 11/30/19 20:26 Temperature Source Skin 11/30/19 20:26 Pulse 66 11/30/19 20:26 Respiratory Rate 18 11/30/19 20:26 Blood Pressure 164/82 H 11/30/19 20:26 Blood Pressure Position Sitting 11/30/19 20:26 Pulse Oximetry 98 11/30/19 20:26 Oxygen Delivery Method Room Air 11/30/19 20:26 Oxygen Flow Rate 0 11/30/19 20:26
[2019-11-30] MEDS: Acetaminophen 500 MG TAB 1000 MG PO (20:49)
[2019-11-30] MEDS: Lidocaine 5% Patch 1 PATCH TP (20:49)
--- NOTE | 2019-11-30 21:19 | DI.VRAD_ITS ---
PROCEDURE INFORMATION: Exam: XR Left Knee Exam date and time: 11/30/2019 8:55 PM Age: 74 years old Clinical indication: Left; Patient HX: Posterior knee pain, nontraumatic TECHNIQUE: Imaging protocol: XR Left knee. Views: 3 views. COMPARISON: No relevant prior studies available. FINDINGS: Bones/joints: No acute fracture identified. There are degenerative changes in the patellofemoral joint. A probable spur is seen arising from the proximal tibia on the lateral image. Soft tissues: There is prominence to the posterior soft tissues. IMPRESSION: 1. No acute fracture identified. Degenerative changes are noted. 2. There is prominence to the posterior soft tissues. This could be secondary to patient body habitus but should be correlated with any concern for edema, infection, or other soft tissue abnormalities. If indicated, an ultrasound or MRI could be considered for further evaluation. Other findings/details as above. Dictated and Authenticated by: Jody Espinoza MD. Ordering:FLAVIO Agudelo MD
== END 2019-11-30 21:45 | disposition home or self-care (01) ==
PROVIDERS: Emergency Provider Student in an Organized Health Care Education/Training Program; PCP Internal Medicine
DX: M25.562 Pain in left knee (principal); I10 Essential (primary) hypertension
CPT/HCPCS: 73562; 99283

== ENCOUNTER 2020-02-03 16:17 | Outpatient (REF) | payer MEDICARE, OTHER, SELFPAY ==
[2020-02-03 20:33] LABS: Anion Gap 7.8 mmol/L (3-11); BUN 21 mg/dL (7-18); CO2 28.2 mmol/L (21.0-32.0); CREATININE 1.18 mg/dL (0.55-1.02); Calcium 9.5 mg/dL (8.5-10.1); Calculated LDL 133 mg/dL (<100); Chloride 104 mmol/L (98-107); Cholesterol 231 mg/dL (<200); Glucose 84 mg/dL (74-106); HDL Cholesterol 87 mg/dL (40-60); Potassium 5.2 mmol/L (3.5-5.1); Sodium 140 mmol/L (136-145); Triglyceride 59 mg/dL (<150)
== END 2020-02-03 16:37 ==
LOC: NCHCN 16:17
PROVIDERS: PCP Internal Medicine; Visit Provider Nurse Practitioner Family
DX: I10 Essential (primary) hypertension (principal); E87.6 Hypokalemia
CPT/HCPCS: 80048; 80061

== ENCOUNTER 2020-02-29 08:49 | Emergency (ER) | payer MEDICARE, OTHER, SELFPAY ==
--- NOTE | 2020-02-29 08:53 | ED.GENADUL_ITS ---
Discharge Plan Disposition Patient Disposition: HOME Condition: Stable Discharge Details Chief Complaint: RashLesion Clinical Impression: Tick bite Primary Care Provider: Buddy Chopra ED Provider: Margie Olmstead Home Meds and New Rx's Prescriptions: Continued losartan 50 mg tablet 75 mg PO DAILY RF: 0 Ocuvite with Lutein 1 EACH tablet 1 ea PO DAILY RF: 0 naproxen 500 MG tablet 500 mg PO PRN PRNRF: 0 calcium citrate-vitamin D3 1 EACH tablet 1 ea PO DAILY RF: 0 diltiazem HCl 120 mg Tablet 120 mg PO DAILY RF: 0 aspirin 325 mg Tablet 650 mg PO PRN PRNRF: 0 Discharge Instructions Instructions: Tick Bite (ED) Additional Instructions: Keep area clean and dry. You can wash area with soap and water. If you notice any redness, swelling or pain, apply topical antibiotic ointment. Return to the emergency department or follow-up with your primary care doctor if you develop fever, chills, body aches, bull's-eye rash or any other concerns or signs of Lyme disease. Discharge Data Discharge Physician: Margie Olmstead Medical Decision Making 74-year-old female presents for evaluation after removal of embedded tick that may have been present for 2 to 3 days and was noted to be engorged this morning. She denies fever, bodyaches, bull's eye rash. Tick fully removed. Area appears consistent with local inflammation reaction w/ small area of ecchymosis with surrounding erythema. No embedded tick noted to be remaining. No evidence of bull's-eye rash. Patient appears nontoxic and afebrile. Patient brought in tick on a small piece of toilet paper and it appears very small and likely consistent with deer tick or nymph. Skin area was cleaned and antibiotic ointment and dressing applied. Discussed appropriate local wound care to decrease chance of secondary bacterial infection. As tick likely present more than 36 hours, was noted to be engorged per patient, and appears to be appropriate type of tick, will treat with doxycycline 200mg PO x 1 for prophylaxis. She was advised to call her PCP or return to the emergency department immediately if she develops any fever, chills or bull's-eye rash as she may need additional treatment or testing for Lyme disease. Medical Records Medical records reviewed: Yes I reviewed the patient's medical records. HPI General Mode of arrival: ambulatory . Date/Time Provider Initiated Documentation: 02/29/20 08:52 . Limitations to Documentation: no limitations . Information obtained by: patient . HPI Narrative: Patient is a 74-year-old female who presents with a complaint of a tick bite left lateral lower ribs that she noticed this morning. She states she has been out in the garden over the past few days, but not yesterday. She thinks she may have gotten the tick 2 to 3 days ago. She states this morning it looked like it was engorged. She states her removed the tick with a tick remover instrument as well as tweezers. She states she is unsure if the tick was alive. She states she initially felt something was there because it was slightly painful. She denies any fever or bull's-eye rash, body aches or chills. Related Data Home Medications Medication Instructions Recorded Confirmed Ocuvite with Lutein 1 ea PO DAILY 05/08/13 02/29/20 calcium citrate-vitamin D3 1 ea PO DAILY 10/11/17 02/29/20 naproxen 500 mg PO PRN PRN 10/11/17 02/29/20 losartan 50 mg tablet 75 mg PO DAILY 10/03/18 03/25/19 diltiazem HCl 120 mg PO DAILY 03/21/19 02/29/20 aspirin 650 mg PO PRN PRN 03/25/19 Allergies Allergy/AdvReac Type Severity Reaction Status Date / Time No Known Allergies Allergy Unverified 02/29/20 09:00 General SHAZIA: 3 Review of Systems All systems reviewed & are unremarkable except as noted in HPI and below Constitutional Constitutional: Reports as per HPI, Denies chills and Denies fever(s) Eyes Eyes: Denies blurry vision ENT Ears, Nose, Mouth, and Throat: Denies dizziness, Denies sore throat and Denies throat swelling Cardiovascular Cardiovascular: Denies chest pain and Denies dyspnea Respiratory Respiratory: Denies cough and Denies dyspnea Gastrointestinal Gastrointestinal: Denies abdominal pain, Denies diarrhea and Denies vomiting Genitourinary Genitourinary: Denies hematuria and Denies dysuria Musculoskeletal Musculoskeletal: Denies back pain and Denies numbness Integumentary/Breasts Skin/Breast: Reports lesions and Reports rash Neurologic Neurologic: Denies dizziness, Denies localized weakness and Denies numbness Allergic/Immunologic Allergic/Immunologic: Denies throat swelling [facility] Medical History (Updated 02/29/20 @ 09:17 by Margie Olmstead DO) Anxiety Essential hypertension Hypercholesterolemia Sciatica RLE&LLE Surgical History Colonoscopy - IV Sedation (~2002) Incomplete Colonoscopy - MAC (~2002) Hx of dilation and curettage (Acute) 1976, 2008 Social History Smoking/Tobacco Use Status: Never Alcohol Intake: current Alcohol Intake frequency: holidays/special occasions only Alcohol type: wine Drug use: Never Substance use type: does not use Do you feel safe at home: Yes Do you feel safe in your relationship?: Yes Additional Social history: , Adal Exam Const General: cooperative, healthy appearing and no acute distress HENMT Head: normal to inspection Mouth: oral mucosae normal Eyes General: appearance normal, both eyes and all related structures Neck Neck: normal visual inspection Resp Effort & Inspection: normal respiratory effort and able to speak in complete sentences Cardio Rate: regular rate GI Abdomen image: 1. Left lower lateral ribs: 3x3mm small flat area of ecchymosis surrounded by 2x2cm area of slightly raised erythema. There is no bull's eye rash. No induration, fluctuance. No remaining tick noted. Neuro General: patient alert, patient awake and patient oriented x3 Motor: muscle tone normal throughout Extrem General: normal to inspection and full ROM Psych Appearance: grossly normal Affect: normal affect
[2020-02-29 08:54] VITALS: BP 170/85; PULSE 66; RESP 18; TEMP 36.6; O2SAT 97
[2020-02-29] MEDS: Doxycycline Hyclate 100 MG CAP 200 MG PO (09:25)
== END 2020-02-29 09:30 | disposition home or self-care (01) ==
PROVIDERS: Emergency Provider Physician Assistant; PCP Internal Medicine
DX: S20.362A Insect bite (nonvenomous) of left front wall of thorax, initial encounter (principal); W57.XXXA Bitten or stung by nonvenomous insect and other nonvenomous arthropods, initial encounter; I10 Essential (primary) hypertension
CPT/HCPCS: 99283

== ENCOUNTER 2020-04-21 18:45 | Outpatient (REF) | payer MEDICARE, OTHER, SELFPAY ==
[2020-04-21 21:05] LABS: Chloride 103 mmol/L (98-107); Potassium 5.1 mmol/L (3.5-5.1); Sodium 141 mmol/L (136-145)
[2020-04-21 21:16] LABS: Anion Gap 10.6 mmol/L (3-11); BUN 24 mg/dL (7-18); CO2 27.4 mmol/L (21.0-32.0); CREATININE 1.19 mg/dL (0.55-1.02); Calcium 9.7 mg/dL (8.5-10.1); Estimated GFR 44.46 (mL/min/1.73m2); Glucose 95 mg/dL (74-106)
== END 2020-04-21 19:05 ==
LOC: NCHCN 18:45
PROVIDERS: PCP Internal Medicine; Visit Provider Internal Medicine
DX: I10 Essential (primary) hypertension (principal)
CPT/HCPCS: 80048; 83735

== ENCOUNTER 2020-04-22 02:18 | Outpatient (CLI) | payer MEDICARE, OTHER, SELFPAY ==
--- NOTE | 2020-04-22 | DI.MAMMO_ITS ---
EXAM: MG MAMMO SCREENING CLINICAL HISTORY: SCREENING, Z12.39 TECHNIQUE: Bilateral full field digital CC and MLO mammographic images were obtained with 3D tomosyn thesis and utilizing computer aided detection (CAD). COMPARISON: Available for comparison. FINDINGS: Masses/Architectural Distortion: None seen. Microcalcifications: No suspicious pleomorphic-type are seen. Skin Thickening/Nipple Retraction: None. IMPRESSION: 1. No significant interval change with no specific features of malignancy noted. 2. Unless there is more urgent need, screening mammography is recommended, as per [employer] guidelines. BI-RADS Category 1 - Negative Breast Density - Category B - Scattered areas of fibroglandular density A negative radiographic report should not delay biopsy if a dominant or clinically suspicious mass is present. Up to ten percent of cancers are not identified on mammography. A negative report may reinforce clinical impression. Adenosis and dense breasts may obscure an underlying neoplasm. False positive reports average 6 to 10%. Patient will receive a letter notifying them of these results.
== END 2020-04-22 02:38 ==
PROVIDERS: PCP Internal Medicine; Visit Provider Internal Medicine
DX: Z12.31 Encounter for screening mammogram for malignant neoplasm of breast (principal); R92.2 Inconclusive mammogram
CPT/HCPCS: 77063; 77067

== ENCOUNTER 2020-06-04 16:49 | Outpatient (REF) | payer MEDICARE, OTHER, SELFPAY | END 2020-06-04 17:09 | LOC: NCHCN 16:49 | PROVIDERS: PCP Internal Medicine; Visit Provider Internal Medicine | DX: R30.0 Dysuria (principal) | CPT/HCPCS: 87086 ==

== ENCOUNTER 2020-08-14 12:34 | Outpatient (REF) | payer MEDICARE, OTHER, SELFPAY | END 2020-08-14 12:54 | LOC: NCHCN 12:34 | PROVIDERS: PCP Internal Medicine; Visit Provider Internal Medicine | DX: R30.0 Dysuria (principal) | CPT/HCPCS: 87086 ==

== ENCOUNTER 2021-04-27 14:29 | Outpatient (REF) | payer MEDICARE, OTHER, SELFPAY ==
[2021-04-27 22:13] LABS: Anion Gap 11.1 mmol/L (3-11); BUN 24 mg/dL (7-18); CO2 23.9 mmol/L (21.0-32.0); CREATININE 0.9 mg/dL (0.55-1.02); Calcium 9.2 mg/dL (8.5-10.1); Chloride 107 mmol/L (98-107); Glucose 91 mg/dL (74-106); Potassium 4.3 mmol/L (3.5-5.1); Sodium 142 mmol/L (136-145)
== END 2021-04-27 14:30 | disposition home or self-care (01) ==
LOC: NCHCN 14:29
PROVIDERS: PCP Internal Medicine; Visit Provider Internal Medicine
DX: I10 Essential (primary) hypertension (principal)
CPT/HCPCS: 80048

== ENCOUNTER 2021-05-10 10:56 | Outpatient (REF) | payer MEDICARE, OTHER, SELFPAY ==
--- NOTE | 2021-05-10 10:15 | SKI_PTH ---
PATIENT: Leatha Lucas LOC: NCN #:[id number] AGE/SX: 75/F ROOM: RE05/10/[address]: Zain Singh : 1945 BED: DIS: 05/10/2021 SPEC #: [id number] RECD: 05/10/21 17:50 STATUS: LISSA REQ #: [id number] DAVI: 05/10/21 10:[address]: Zain Singh DEPT: Surgical Specimen RECD BY: Rosario Onela ENTERED: 05/10/21 17:51 SP TYPE: HEIKE GONZALEZ DR: Buddy Cohpra Tissues: 1 - SKIN BIOPSY(SHAVE/PUNCH) Procedures: SKIN LEVEL 4 Comments: [id number]
== END 2021-05-10 10:57 | disposition home or self-care (01) ==
LOC: NCHCN 10:56
PROVIDERS: PCP Internal Medicine; Visit Provider Family Medicine
DX: D22.5 Melanocytic nevi of trunk (principal)
CPT/HCPCS: 88305

== ENCOUNTER → 2022-03-09 02:47 | Outpatient (CLI) | payer MEDICARE, SELFPAY ==
--- NOTE | 2022-03-09 | DI.MAMMO_ITS ---
Exam(s) MAMMO SCREENING EXAM: MAMMO SCREENING CLINICAL HISTORY: SCREENING FOR BREAST CA, Z12.39. TECHNIQUE: Bilateral full field digital CC and MLO mammographic images were obtained with 3D tomosyn thesis and utilizing computer aided detection (CAD). COMPARISON: Prior mammograms were reviewed, the most recent being April 2020. FINDINGS: There has been no significant change in appearance and distribution of the fibroglandular tissue. Asymmetric density in the left breast located 4 cm in from the nipple on the left CC view is unchange d from at least 2018. Previously present nodular density laterally in the left breast is less eviden t on the present study. No new significant left breast findings. In the right breast there is asymmetric density located 4.8 cm in from the nipple on the MLO view, po ssibly significant more evident than previous. Spot compression and ultrasound recommended There are no malignant-appearing microcalcification groups in this region or elsewhere in either [address]. IMPRESSION: 1. No radiographic evidence of malignancy in left breast. 2. Asymmetric density-possible nodule in the right breast seen on MLO view. Spot compression views a nd ultrasound recommended. BI-RADS Category 0 - Assessment Incomplete: Need additional imaging evaluation Breast Density - Category B - Scattered areas of fibroglandular density Breast density Category C or D implies that the patient has dense breast tissue. Dense breast tissue can make it harder to find cancer on a mammogram. Dense breast tissue is also associated with an incr eased risk of breast cancer. This information about the result of the mammogram report was provided to the patient to raise their awareness. Use this report when you speak with the patient about their risks for breast cancer, which includes their family history. At that time, you may recommend additional screening tests (Ultrasoun d or MRI) as these tests may add significant information. A negative radiographic report should not delay biopsy if a dominant or clinically suspicious mass is present. Up to ten percent of cancers are not identified on mammography. A negative report may reinforce clinical impression. Adenosis and dense breasts may obscure an underlying neoplasm. False positive reports average 6 to 10%. Patient will receive a letter notifying them of these results.
== END ==
PROVIDERS: PCP Internal Medicine; Visit Provider Family Medicine
DX: Z12.31 Encounter for screening mammogram for malignant neoplasm of breast (principal); R92.8 Other abnormal and inconclusive findings on diagnostic imaging of breast
CPT/HCPCS: 77063; 77067

== ENCOUNTER 2022-03-14 02:07 | Outpatient (CLI) | payer MEDICARE, SELFPAY ==
--- NOTE | 2022-03-14 | DI.MAMMO_ITS ---
Exam(s) MAMMO SCREEN CALL BACK UNI EXAM: MAMMO SCREEN CALL BACK UNI CLINICAL HISTORY: F/U TO ABNL MAMMO, ASYMMETRIC DENSITY RT BREAST TECHNIQUE: Spot compression views and tomographic imaging were performed. COMPARISON: 2012 through 09 March 2022 FINDINGS: No suspicious masses or suspicious microcalcifications are seen. There is a small faintly visualized area of nodularity shows the typical appearance of a an intramamm [place] lymph node, lying adjacent to a blood vessel. IMPRESSION: BI-RADS Category 1, Negative Yearly screening mammography is recommended. Breast Density - Category B, scattered fibroglandular densities.
== END 2022-03-14 02:27 ==
PROVIDERS: PCP Internal Medicine; Visit Provider Family Medicine
DX: Z12.31 Encounter for screening mammogram for malignant neoplasm of breast (principal); R92.8 Other abnormal and inconclusive findings on diagnostic imaging of breast; N64.59 Other signs and symptoms in breast
CPT/HCPCS: 77063; 77067

== ENCOUNTER 2022-04-25 16:24 | Outpatient (REF) | payer MEDICARE, SELFPAY ==
[2022-04-25 19:10] LABS: HGB 13.7 g/dL (11.2-15.7); MCH 30.6 pg (27.0-33.0); MCHC 33.4 % (32.0-36.0); MCV 92 fL (80-95); MPV 10.6 fL (8.0-11.0); Platelet Count 250 10^3/uL (130-400); RBC 4.47 10^6/uL (3.93-5.22); RDW 13.2 % (11.7-14.6); RDW-SD 43.9 fL; WBC 4.75 10^3/uL (4.4-10.8)
[2022-04-25 19:16] LABS: Anion Gap 7.8 mmol/L (3-11); BUN 28 mg/dL (7-18); CO2 28.2 mmol/L (21.0-32.0); CREATININE 1.2 mg/dL (0.55-1.02); Calcium 9.2 mg/dL (8.5-10.1); Chloride 106 mmol/L (98-107); Glucose 103 mg/dL (74-106); Potassium 4.4 mmol/L (3.5-5.1); Sodium 142 mmol/L (136-145)
== END 2022-04-25 16:25 | disposition home or self-care (01) ==
LOC: NCHCN 16:24
PROVIDERS: PCP Internal Medicine; Visit Provider Family Medicine
DX: I10 Essential (primary) hypertension (principal)
CPT/HCPCS: 80048; 85027

== ENCOUNTER 2023-04-17 10:57 | Outpatient (REF) | payer MEDICARE, SELFPAY ==
[2023-04-17 15:12] LABS: HCT 43.4 % (36.0-46.0); HGB 14.2 g/dL (11.2-15.7); MCH 30.1 pg (27.0-33.0); MCHC 32.7 % (32.0-36.0); MCV 92 fL (80-95); MPV 11.1 fL (8.0-11.0); Platelet Count 240 10^3/uL (130-400); RBC 4.71 10^6/uL (3.93-5.22); RDW 13.5 % (11.7-14.6); RDW-SD 46.1 fL; WBC 4.86 10^3/uL (4.4-10.8)
[2023-04-17 16:26] LABS: ALT 26 U/L (14-59); AST 18 U/L (15-37); Albumin 3.7 g/dL (3.4-5.0); Alkaline Phosphatase 67 U/L (46-116); Anion Gap 9.9 mmol/L (3-11); BUN 27 mg/dL (7-18); Bilirubin, Total 0.3 mg/dL (0.2-1.0); CO2 28.1 mmol/L (21.0-32.0); Calculated LDL 123 mg/dL (<100); Chloride 107 mmol/L (98-107); Cholesterol 224 mg/dL (<200); Estimated GFR 58.39 (mL/min/1.73m2); Glucose 94 mg/dL (74-106); HDL Cholesterol 89 mg/dL (40-60); Potassium 5.1 mmol/L (3.5-5.1); Sodium 145 mmol/L (136-145); Triglyceride 61 mg/dL (<150)
== END 2023-04-17 10:58 | disposition home or self-care (01) ==
LOC: NCHCN 10:57
PROVIDERS: PCP Internal Medicine; Visit Provider Family Medicine
DX: Z00.00 Encounter for general adult medical examination without abnormal findings (principal); I10 Essential (primary) hypertension
CPT/HCPCS: 80053; 80061; 85027

== ENCOUNTER → 2024-03-08 04:10 | Outpatient (CLI) | payer MEDICARE, SELFPAY ==
--- NOTE | 2024-03-08 12:25 | DI.MAMMO_ITS ---
Exam(s) MAMMO SCREENING EXAM: MAMMO SCREENING CLINICAL HISTORY: Z12.39 Screening TECHNIQUE: Bilateral full field digital CC and MLO mammographic images were obtained with 3D tomosyn thesis and utilizing computer aided detection (CAD). COMPARISON: Available for comparison. FINDINGS: Masses/Architectural Distortion: None seen. Microcalcifications: No suspicious pleomorphic-type are seen. Skin Thickening/Nipple Retraction: None. IMPRESSION: 1. No significant interval change with no specific features of malignancy noted. 2. Unless there is more urgent need, screening mammography is recommended, as per [employer] guidelines. BI-RADS Category 1 - Negative Breast Density - Category B - Scattered areas of fibroglandular density Breast density category C or D implies that the patient has dense breast tissue. Dense breast tissue is very common and is not abnormal but dense breast tissue can make it harder to find cancer on a ma mmogram. Also, dense breast tissue may increase their breast cancer risk. This information about the result of the mammogram report was provided to the patient to raise their awareness. Use this report when you speak with the patient about their risks for breast cancer, which includes their family hist ory. At that time, you may recommend for more screening tests (Ultrasound or MRI) as they might be us eful based on their risk. A negative radiographic report should not delay biopsy if a dominant or clinically suspicious mass is present. Up to ten percent of cancers are not identified on mammography. A negative report may reinforce clinical impression. Adenosis and dense breasts may obscure an underlying neoplasm. False positive reports average 6 to 10%. Patient will receive a letter notifying them of these results.
== END ==
PROVIDERS: PCP Family Medicine; Visit Provider Family Medicine
DX: Z12.31 Encounter for screening mammogram for malignant neoplasm of breast (principal)
CPT/HCPCS: 77063; 77067

== ENCOUNTER 2024-05-01 19:37 | Outpatient (REF) | payer MEDICARE, SELFPAY ==
[2024-05-01 21:16] LABS: Anion Gap 10.2 mmol/L (3-11); BUN 21 mg/dL (7-18); CO2 27.8 mmol/L (21.0-32.0); Calcium 9.3 mg/dL (8.5-10.1); Chloride 107 mmol/L (98-107); Estimated GFR 58.02 (mL/min/1.73m2); Glucose 90 mg/dL (74-106); Potassium 4.6 mmol/L (3.5-5.1); Sodium 145 mmol/L (136-145)
== END 2024-05-01 19:38 | disposition home or self-care (01) ==
LOC: NCHCN 19:37
PROVIDERS: PCP Family Medicine; Visit Provider Family Medicine
DX: I10 Essential (primary) hypertension (principal)
CPT/HCPCS: 80048

== ENCOUNTER 2025-05-07 18:27 | Outpatient (REF) | payer MEDICARE, SELFPAY ==
[2025-05-07 20:39] LABS: Anion Gap 8.9 mmol/L (3-11); BUN 17 mg/dL (7-18); CO2 29.1 mmol/L (21.0-32.0); Calcium 9.4 mg/dL (8.5-10.1); Chloride 104 mmol/L (98-107); Estimated GFR 65.44 (mL/min/1.73m2); Glucose 96 mg/dL (74-106); Potassium 4.3 mmol/L (3.5-5.1); Sodium 142 mmol/L (136-145)
== END 2025-05-07 18:28 | disposition home or self-care (01) ==
LOC: NCHCN 18:27
PROVIDERS: PCP Family Medicine; Visit Provider Family Medicine
DX: Z00.00 Encounter for general adult medical examination without abnormal findings (principal)
CPT/HCPCS: 80048